=== PATIENT | male | born 1935 | race Caucasian/White ===

== ENCOUNTER 2017-11-24 16:39 | Observation (INO) ==
[2017-11-24] MEDS ORDERED: *HR* HYDROcodone/Acet 5/325 mg TABLET PO PRN (23:02)
[2017-11-24] MEDS ORDERED: Acetaminophen 325 MG TABLET PO PRN (23:02)
[2017-11-24] MEDS ORDERED: Ondansetron 4 MG/2 ML VIAL IVP PRN (23:02)
[2017-11-24] MEDS ORDERED: *HR* Promethazine 25 MG/ML VIAL IVP PRN (23:02)
[2017-11-24] MEDS ORDERED: Naloxone 0.4 MG/ML INJ IVP PRN (23:02)
[2017-11-24] MEDS ORDERED: Nitroglycerin 0.4 MG TAB.SUBL SL PRN (23:06)
--- NOTE | 2017-11-24 23:20 | Internal Med History&Physical ---
Date of Encounter: 11/24/17 Time of Encounter: 22:30 Internal Medicine - H&P: HPI Chief complaint: Chest pain Admitted From: Emergency Dept Plans for Post Hospital Care: Home History of present illness: Mr. Graham is a 82 year old male with known PMH of Chronic Afib, HTN, Dementia , and HLD who recently had a fall with Rt hip fracture for which he underwent Rt hip repair with Cephalomedullary nail placement by ortho later pt was discharged to [facility] rehab center for short term PT. Now he was sent to our hospital from rehab center since pt did c/o CP this morning while he was was rehab center. Pt stated he has left chest wall pain, 5/10 in severity non radiating and not associated with any nausea/ vomiting. His CP is more like tightness, which lasted for 10 minutes. Apparently he did have new ST depression on EKG, so pt was transferred here for further care. P denied any active CP now. Past Med Surg Social Fam HX - Past Medical History Medical history: atrial fibrillation, dementia, hyperlipidemia Psychiatric history: no psych history - Past Surgical History Surgical History: appendectomy - Social History Smoking Status: Never smoker Smokeless Tobacco Status: No Alcohol use: none Drug use: none - Family History Mother Living Status: Internal Medicine - H&P: Meds Aspirin [Lo-Dose Aspirin EC] 81 mg PO DAILY 11/19/17 [History] Donepezil HCl [Aricept] 5 mg PO DAILY 11/19/17 [History] Acetaminophen [Tylenol] 650 mg PO Q6HR PRN tablet 11/23/17 [Rx] Cholecalciferol (D-3) [Vitamin D] 2,000 unit PO DAILY tablet 11/23/17 [Rx] Enoxaparin [Lovenox] 40 mg SQ 0600 syringe 11/23/17 [Rx] Metoprolol [Lopressor] 25 mg PO BID tablet 11/23/17 [Rx] risperiDONE [RisperDAL] 0.25 mg PO HS tablet 11/23/17 [Rx] 3 Allergy/AdvReac Type Severity Reaction Status Date / Time No Known Allergies Allergy Verified 11/19/17 15:12 All Systems PM: A 10-system review of systems was performed and is negative for pertinent findings except as documented above in the HPI. Review of systems: All the systems are reviewed everything is benign except the systems and symptoms I mentioned in the history of present illness - Constitutional Vitals: Temp Pulse Resp BP Pulse Ox 98.8 F 84 16 111/68 98 11/24/17 20:07 11/24/17 20:07 11/24/17 20:07 11/24/17 20:07 11/24/17 20:07 General appearance: Present: A&O X 3, no acute distress, answers questions appropriately - Head Head exam: Present: atraumatic, normal inspection - Neck Neck exam general surgery: Present: supple - Respiratory Respiratory exam: Present: decreased breath sounds. Absent: rales, respiratory distress, rhonchi, wheezes - Cardiovascular Cardiovascular exam: Present: irregular rhythm, +S1, +S2. Absent: systolic murmur, tachycardia - GI/Abdominal GI/Abdominal exam: Present: normal bowel sounds, soft. Absent: rebound, rigid, tenderness - Extremities Exam Extremities exam: Absent: calf tenderness, pedal edema, tenderness Additional comments: clean incision over Rt hip are noticed no swelling / no signs of cellulites - Back Exam Back exam: Absent: CVA tenderness (L), CVA tenderness (R) - Neurological Exam Neurological exam: Present: alert, oriented X3 - Psychiatric Psychiatric exam: Present: normal affect, normal mood - Skin Skin exam: Absent: rash - Assessment and plan (1) Chest pain Current Visit: No Status: Acute Assessment and plan: Will admit the pt into Tele for observation Will place pt on residential monitor check serial troponin so far negative troponin No EKG found in the pt's transferred medical records will get a stat EKG now Pt denied any CP now Cont pt on ASA, and Nitro PRN for pain Will check FLP in AM Will get stress test in AM since pt is high risk for ACS Qualifiers: Qualified Code(s): I20.0 - Unstable angina (2) Atrial fibrillation Current Visit: No Status: Chronic Assessment and plan: rate controlled with metoprolol not on coumadin / anti coag due to high risk for falls cont ASA Qualifiers: Atrial fibrillation type: persistent Qualified Code(s): I48.1 - Persistent atrial fibrillation (3) Dementia Current Visit: No Status: Chronic Assessment and plan: resumed hoe meds Qualifiers: Alzheimer's disease onset: late-onset Dementia behavioral disturbance: without behavioral disturbance Qualified Code(s): G30.1 - Alzheimer's disease with late onset; F02.80 - Dementia in other diseases classified elsewhere without behavioral disturbance; F02.80 - Dementia in other diseases classified elsewhere without behavioral disturbance; F02.80 - Dementia in other diseases classified elsewhere without behavioral disturbance (4) Osteopenia Current Visit: No Status: Chronic Assessment and plan: on Vit D supplements Qualifiers: Osteopenia location: unspecified Qualified Code(s): M85.80 - Other specified disorders of bone density and structure, unspecified site (5) Urinary retention Current Visit: No Status: Acute Assessment and plan: cont Aggarwal which was placed during last week hospitalization need to f/u with Urology as an out pt (6) HTN (hypertension) Current Visit: Yes Status: Acute Assessment and plan: stable with current meds Qualifiers: Hypertension type: essential hypertension Qualified Code(s): I10 - Essential (primary) hypertension (7) History of repair of right hip joint Current Visit: Yes Status: Acute Assessment and plan: on Lovenox for DVT prophylaxis PT / OT out pt f/u with Ortho - Time Spent With Patient Total time spent is greater than 50% in coordination of care (as documented) at patient's floor/unit and/or counseling patient:
[2017-11-25] MEDS: *HR* OxyCODONE Immed Rel 5 MG TABLET PO PRN ×3 (01:03→21:49)
[2017-11-25 01:04] LABS: Chol/HDL Ratio 5.2 (0-4.9)
[2017-11-25] MEDS: *HR* FentaNYL (PF) 100 MCG/2 ML VIAL IVP PRN (03:22)
[2017-11-25] MEDS: *HR* Enoxaparin 40 MG/0.4 ML SYRINGE SQ SCH (06:22)
[2017-11-25] MEDS: Aspirin Enteric Coated 81 MG Tablet PO SCH (08:39)
[2017-11-25] MEDS: Cholecalciferol (D-3) 1,000 UNIT TABLET PO SCH (08:39)
--- NOTE | 2017-11-25 15:35 | Internal Med Progress Note ---
Date of Encounter: 11/25/17 Time of Encounter: 15:32 - Assessment and plan (1) Atrial fibrillation Current Visit: No Status: Chronic Assessment and plan: rate controlled with metoprolol dose not on coumadin / anti coag due to high risk for falls cont ASA Qualifiers: Atrial fibrillation type: persistent Qualified Code(s): I48.1 - Persistent atrial fibrillation (2) Osteopenia Current Visit: No Status: Chronic Assessment and plan: on Vit D supplement Qualifiers: Osteopenia location: unspecified Qualified Code(s): M85.80 - Other specified disorders of bone density and structure, unspecified site (3) Dementia Current Visit: No Status: Chronic Assessment and plan: home meds Qualifiers: Alzheimer's disease onset: late-onset Dementia behavioral disturbance: without behavioral disturbance Qualified Code(s): G30.1 - Alzheimer's disease with late onset; F02.80 - Dementia in other diseases classified elsewhere without behavioral disturbance; F02.80 - Dementia in other diseases classified elsewhere without behavioral disturbance; F02.80 - Dementia in other diseases classified elsewhere without behavioral disturbance (4) Urinary retention Current Visit: No Status: Acute Assessment and plan: cont Aggarwal which was placed during last week hospitalization need to f/u with Urology as an out patient (5) Chest pain Current Visit: No Status: Acute Assessment and plan: serial troponin negative No EKG found in the pt's transferred medical records EKG afib Pt denied chest pain Cont ASA, Nitro PRN for pain FLP reviewed stress test in AM since pt is high risk for ACS Qualifiers: Qualified Code(s): I20.0 - Unstable angina (6) HTN (hypertension) Current Visit: Yes Status: Acute Assessment and plan: stable, continue current meds Qualifiers: Hypertension type: essential hypertension Qualified Code(s): I10 - Essential (primary) hypertension (7) History of repair of right hip joint Current Visit: Yes Status: Acute Assessment and plan: patient on Lovenox for DVT prophylaxis PT / OT out pt f/u with Ortho - Time Spent With Patient Total time spent is greater than 50% in coordination of care (as documented) at patient's floor/unit and/or counseling patient: - Subjective Interval history: Patient is lying in bed in no distress and denied any chest pain at this time. He is a recent hip replacement to was discharged from here to a rehabilitation unit. He was there one day and came back. He has a Aggarwal catheter that he left the hospital with. His only complaint is of an itchy back. His son Kenn is at the bedside and would like to be called tomorrow after the stress test with results at [phone] - Constitutional Vitals: Temp Pulse Resp BP Pulse Ox 97.6 F 83 16 97/59 96 11/25/17 10:00 11/25/17 10:00 11/25/17 10:00 11/25/17 10:00 11/25/17 10:00 General appearance: Present: cooperative, A&O X 2, pleasant, no acute distress, answers questions appropriately - Head Head exam: Present: atraumatic, normocephalic - Eye Eye exam: Present: PERRL, conjuntiva pink, sclera anicteric Pupils: Present: PERRL - Neck Neck exam general surgery: Present: supple, trachea midline. Absent: lymphadenopathy - Respiratory Respiratory exam: Present: CTAB. Absent: accessory muscle use, rales, rhonchi, wheezes - Cardiovascular Cardiovascular exam: Present: RRR, +S1, +S2. Absent: diastolic murmur, gallop, rubs, systolic murmur - GI/Abdominal GI/Abdominal exam: Present: normal bowel sounds, soft, no peritoneal signs. Absent: distended, tenderness Additional comments: Aggarwal intact draining yellow urine - Extremities Exam Extremities exam: Present: warm, radial pulses palpable and symmetrical. Absent : calf tenderness, cyanotic, pedal edema - Neurological Exam Neurological exam: Present: alert, CN II-XII intact, no focal deficits. Absent : pronater drift, facial droop, speech deficit - Skin Skin exam: Present: dry, intact, normal color, warm Internal Medicine: Result - Labs Labs: Cardiac Enzymes 11/25/17 11/25/17 Range/Units 00:16 05:50 Troponin I 0.03 0.03 (< 0.04) ng/mL Consult Discharge Plan - Plan Referrals: NONE,PCP [Primary Care Provider] -
[2017-11-25] MEDS: risperiDONE 0.25 MG TABLET PO SCH (21:49)
[2017-11-26 05:06] LABS: Hematocrit 24.7 % (37.5-50.1); Hemoglobin 8.3 g/dL (12.9-16.9); Mean Corpuscular HGB Conc 33.6 g/dL (31.6-35.5); Mean Corpuscular Hemoglobin 31.1 pg (28.0-33.3); Mean Corpuscular Volume 92.5 fL (83.0-100.0); Mean Platelet Volume 10.1 fL (9.4-12.4); Platelet Count 233 K/mcL (140-400); Red Blood Count 2.67 M/mcL (4.19-5.50); Red Cell Distribution Width 14.1 % (11.5-14.5)
[2017-11-26 05:18] LABS: BUN/Creatinine Ratio 29 (6-26); Blood Urea Nitrogen 19 mg/dL (8-23); Calcium 8.1 mg/dL (8.6-10.3); Carbon Dioxide 27 mEq/L (23-29); Chloride 107 mEq/L (98-107); Glucose 95 mg/dL (70-105); Osmolality,Calculated 286 (280-300); Sodium 137 mEq/L (136-145); eGFR For African Americans > 60 (> 60); eGFR For Non-African Americans > 60 (> 60)
[2017-11-26] MEDS: *HR* Enoxaparin 40 MG/0.4 ML SYRINGE SQ SCH (05:54)
[2017-11-26] MEDS: *HR* OxyCODONE Immed Rel 5 MG TABLET PO PRN ×2 (05:55→20:51)
[2017-11-26] MEDS: *HR* FentaNYL (PF) 100 MCG/2 ML VIAL IVP PRN ×2 (07:00→23:44)
[2017-11-26] MEDS: Aspirin Enteric Coated 81 MG Tablet PO SCH (09:00)
[2017-11-26] MEDS: Cholecalciferol (D-3) 1,000 UNIT TABLET PO SCH (09:00)
--- NOTE | 2017-11-26 19:01 | Internal Med Progress Note ---
Date of Encounter: 11/26/17 Time of Encounter: 18:58 - Assessment and plan (1) Atrial fibrillation Current Visit: No Status: Chronic Assessment and plan: rate controlled with metoprolol not on coumadin / anti coag due to high risk for falls cont ASA Qualifiers: Atrial fibrillation type: persistent Qualified Code(s): I48.1 - Persistent atrial fibrillation (2) Osteopenia Current Visit: No Status: Chronic Assessment and plan: Vit D supplement Qualifiers: Osteopenia location: unspecified Qualified Code(s): M85.80 - Other specified disorders of bone density and structure, unspecified site (3) Dementia Current Visit: No Status: Chronic Assessment and plan: home meds pleasant Qualifiers: Alzheimer's disease onset: late-onset Dementia behavioral disturbance: without behavioral disturbance Qualified Code(s): G30.1 - Alzheimer's disease with late onset; F02.80 - Dementia in other diseases classified elsewhere without behavioral disturbance; F02.80 - Dementia in other diseases classified elsewhere without behavioral disturbance; F02.80 - Dementia in other diseases classified elsewhere without behavioral disturbance (4) Urinary retention Current Visit: No Status: Acute Assessment and plan: cont Aggarwal which was placed during last week of hospitalization need to f/u with Urology as an out patient (5) Chest pain Current Visit: No Status: Acute Assessment and plan: serial troponin negative EKG afib Pt denied chest pain Cont ASA, Nitro PRN for pain FLP reviewed Unable to tolerate stress test as he could not lie flat secondary to back and hip pain. Dobutamine stress echo pending in the morning. Qualifiers: Qualified Code(s): I20.0 - Unstable angina (6) HTN (hypertension) Current Visit: Yes Status: Acute Assessment and plan: stable, continue meds Qualifiers: Hypertension type: essential hypertension Qualified Code(s): I10 - Essential (primary) hypertension (7) History of repair of right hip joint Current Visit: Yes Status: Acute Assessment and plan: patient on Lovenox for DVT prophylaxis PT / OT out pt f/u with Ortho service - Time Spent With Patient Total time spent is greater than 50% in coordination of care (as documented) at patient's floor/unit and/or counseling patient: - Subjective Interval history: Patient is lying in bed in no distress and denied any chest pain at this time. He is a recent hip replacement to was discharged from here to a rehabilitation unit. He was there one day and came back with the chest. He has a Aggarwal catheter that he left the hospital with. His only complaint is an itchy back. His son Kenn was called at [phone] and told the stress test was not completed he would have a dobutamine stress echo in the morning - Constitutional Vitals: Temp Pulse Resp BP Pulse Ox 98.8 F 75 16 105/68 97 11/26/17 15:38 11/26/17 15:38 11/26/17 15:38 11/26/17 15:38 11/26/17 15:38 General appearance: Present: cooperative, A&O X 2, pleasant, no acute distress, answers questions appropriately - Head Head exam: Present: atraumatic, normocephalic - Eye Eye exam: Present: PERRL, conjuntiva pink, sclera anicteric Pupils: Present: PERRL - Neck Neck exam general surgery: Present: supple, trachea midline. Absent: lymphadenopathy - Respiratory Respiratory exam: Present: CTAB. Absent: accessory muscle use, rales, rhonchi, wheezes - Cardiovascular Cardiovascular exam: Present: RRR, +S1, +S2. Absent: diastolic murmur, gallop, rubs, systolic murmur - GI/Abdominal GI/Abdominal exam: Present: normal bowel sounds, soft, no peritoneal signs. Absent: distended, tenderness - Extremities Exam Extremities exam: Present: warm, radial pulses palpable and symmetrical. Absent : calf tenderness, cyanotic, pedal edema Additional comments: Right Hip wound clean and dry sterile with hip pain. - Neurological Exam Neurological exam: Present: alert, CN II-XII intact, no focal deficits. Absent : pronater drift, facial droop, speech deficit - Skin Skin exam: Present: dry, warm Additional comments: Red rash on back that is very itchy may be secondary to linens Internal Medicine: Result - Labs CBC & Chem 7: 11/26/17 04:29 11/26/17 04:29 Labs: Short CBC 11/26/17 Range/Units 04:29 WBC 10.2 (4.3-11.1) K/mcL Hgb 8.3 L (12.9-16.9) g/dL Hct 24.7 L (37.5-50.1) % Plt Count 233 (140-400) K/mcL BMP 11/26/17 04:29 Sodium 137 Potassium 4.0 Chloride 107 Carbon Dioxide 27 BUN 19 Creatinine 0.65 L Glucose 95 Calcium 8.1 L Consult Discharge Plan - Plan Referrals: NONE,PCP [Primary Care Provider] -
[2017-11-26] MEDS: risperiDONE 0.25 MG TABLET PO SCH (20:52)
[2017-11-27 05:59] LABS: Hematocrit 27.4 % (37.5-50.1); Hemoglobin 9.2 g/dL (12.9-16.9); Mean Corpuscular HGB Conc 33.6 g/dL (31.6-35.5); Mean Corpuscular Hemoglobin 31.7 pg (28.0-33.3); Mean Corpuscular Volume 94.5 fL (83.0-100.0); Platelet Count 299 K/mcL (140-400); Red Cell Distribution Width 14.5 % (11.5-14.5)
[2017-11-27 06:19] LABS: BUN/Creatinine Ratio 27 (6-26); Blood Urea Nitrogen 20 mg/dL (8-23); Calcium 8.3 mg/dL (8.6-10.3); Carbon Dioxide 27 mEq/L (23-29); Chloride 107 mEq/L (98-107); Glucose 90 mg/dL (70-105); Osmolality,Calculated 288 (280-300); Potassium 4.3 mEq/L (3.5-5.1); Sodium 138 mEq/L (136-145); eGFR For African Americans > 60 (> 60); eGFR For Non-African Americans > 60 (> 60)
[2017-11-27] MEDS: *HR* OxyCODONE Immed Rel 5 MG TABLET PO PRN (07:03)
[2017-11-27] MEDS: *HR* Enoxaparin 40 MG/0.4 ML SYRINGE SQ SCH (07:04)
--- NOTE | 2017-11-27 10:14 | Internal Med Progress Note ---
Date of Encounter: 11/27/17 Time of Encounter: 10:11 - Assessment and plan (1) Chest pain Current Visit: No Status: Acute Assessment and plan: Patient had chest pain while at outpatient rehabilitation. Denies any chest pain at this time. Troponins are negative EKG with no acute ST changes. Patient was unable to complete stress test due to elevated heart rate. TTE showed preserved EF. Cardiology was consulted recommending canceling stress test and continue to monitor. Once he has recovered from his hip replacement consider stress test if chest pain continues Qualifiers: Chest pain type: unspecified Qualified Code(s): R07.9 - Chest pain, unspecified (2) Atrial fibrillation Current Visit: No Status: Chronic Assessment and plan: 1 patient has a history of chronic atrial fibrillation his Lopressor was held for stress test. A apparently during the stress test patient began to have elevated heart rate with low blood pressure he was not able to tolerate the test and it was terminated. We did consult cardiology who did see the patient presently he is only on aspirin for anticoagulation. She had ASCUS 3. Cardiology recommending patient Coumadin or [place] once he is back to baseline Qualifiers: Atrial fibrillation type: persistent Qualified Code(s): I48.1 - Persistent atrial fibrillation (3) Osteopenia Current Visit: No Status: Chronic Assessment and plan: Continue Vit D supplement Qualifiers: Osteopenia location: unspecified Qualified Code(s): M85.80 - Other specified disorders of bone density and structure, unspecified site (4) Dementia Current Visit: No Status: Chronic Assessment and plan: Continue with home medications Qualifiers: Dementia type: unspecified type Dementia behavioral disturbance: without behavioral disturbance Qualified Code(s): F03.90 - Unspecified dementia without behavioral disturbance (5) Urinary retention Current Visit: No Status: Acute Assessment and plan: cont Aggarwal which was placed during last week of [id number] with urology as outpatient (6) HTN (hypertension) Current Visit: Yes Status: Acute Assessment and plan: continue meds Qualifiers: Hypertension type: essential hypertension Qualified Code(s): I10 - Essential (primary) hypertension (7) History of repair of right hip joint Current Visit: Yes Status: Acute Assessment and plan: patient on Lovenox for DVT prophylaxis PT / OT out pt f/u with Ortho service - Time Spent With Patient Total time spent is greater than 50% in coordination of care (as documented) at patient's floor/unit and/or counseling patient: - Subjective Interval history: This patient is new to me , I did review records. The patient went down for a dobutamine stress test,apparently the test was stopped dt rapid afib and low BP I did examine the patient upon arrival to the floor. He denies any CP, palpitations or SOB. He is afib on the monitor. BP low 93/59. Ordered stat EKG. - Constitutional Vitals: Temp Pulse Resp BP Pulse Ox 98.0 F 81 16 111/74 90 11/27/17 06:39 11/27/17 06:39 11/27/17 06:39 11/27/17 06:39 11/27/17 06:39 General appearance: Present: cooperative, A&O X 2, pleasant, no acute distress, answers questions appropriately - Head Head exam: Present: atraumatic, normocephalic - Eye Eye exam: Present: PERRL, conjuntiva pink, sclera anicteric Pupils: Present: PERRL - Neck Neck exam general surgery: Present: supple, trachea midline. Absent: lymphadenopathy - Respiratory Respiratory exam: Present: CTAB. Absent: accessory muscle use, rales, rhonchi, wheezes - Cardiovascular Cardiovascular exam: Present: RRR, +S1, +S2. Absent: diastolic murmur, gallop, rubs, systolic murmur - GI/Abdominal GI/Abdominal exam: Present: normal bowel sounds, soft, no peritoneal signs. Absent: distended, tenderness - Extremities Exam Extremities exam: Present: warm, radial pulses palpable and symmetrical. Absent : calf tenderness, cyanotic, pedal edema - Expanded Lower Extremities Exam Hip exam: Present: tenderness (R hip with dressing intact, no redness swelling or drainage) Internal Medicine: Result - Labs CBC & Chem 7: 11/27/17 04:47 11/27/17 04:47 Labs: Short CBC 11/27/17 Range/Units 04:47 WBC 10.9 (4.3-11.1) K/mcL Hgb 9.2 L (12.9-16.9) g/dL Hct 27.4 L (37.5-50.1) % Plt Count 299 (140-400) K/mcL BMP 11/27/17 04:47 Sodium 138 Potassium 4.3 Chloride 107 Carbon Dioxide 27 BUN 20 Creatinine 0.75 Glucose 90 Calcium 8.3 L Consult Discharge Plan - Plan Referrals: NONE,PCP [Primary Care Provider] -
[2017-11-27] MEDS: Cholecalciferol (D-3) 1,000 UNIT TABLET PO SCH (11:24)
[2017-11-27] MEDS: Aspirin Enteric Coated 81 MG Tablet PO SCH (11:24)
--- NOTE | 2017-11-27 13:37 | Cardiology Consult Note ---
<Darrell Maya - Last Filed: 11/27/17 15:07> Date of Encounter: 11/27/17 Time of Encounter: 13:30 Assessment and Plan (1) Atrial fibrillation Status: Chronic H/o chronic afib. Lopressor held yesterday for low blood pressure and held this morning for stress test. HR noted to be elevated by stress staff and stress test was not completed. Avg HR over 24 hours was 86 bpm. HR currently 82 bpm. He did receive his metoprolol this afternoon. Overall he appears to be well controlled. He is on asa only due to falls. CHADS VASc=3 for HTN and age2. Consider starting coumadin or NOAC once he is more steady on his feet. Increased risk of CVA reviewed with patient. Qualifiers: Atrial fibrillation type: persistent Qualified Code(s): I48.1 - Persistent atrial fibrillation (2) Chest pain Status: Acute Patient reported to have chest pain at rehab. Unable to assess on my exam due to dementia. Denies pain in the past two days. Troponin negative. EKG shows rate controlled afib with no acute ST changes. Patient unable to complete stress test due to hip pain and elevated HR. TTE 11/20/17 showed preserved EF. Recommend canceling stress test and continue to monitor. Once he heals from hip replacement consider stress if recurrent pain. I discussed with patient and his brother and they agree with plan. Qualifiers: Chest pain type: unspecified Qualified Code(s): R07.9 - Chest pain, unspecified Discussion w patient/family: The assessment and plan as outlined above was discussed with the patient and/or family members who expressed understanding and agreement. All questions were answered. Thank you for involving us in the care of your patient. Please call with any questions. History of Present Illness Consult date: 11/27/17 Requesting physician: Hanh Melchor Consult reason: Chest pain, afib Chief complaint: Chest pain History of present illness: Mr. Graham is a 82 year old male who presents from rehab facility after c/o chest pain. He has a past medical history of chronic atrial fibrillation, HLD, demantia. He was residing at the [facility] after undergoing right hip repair. On my exam he denies chest pain. He also does not remember having chest pain.He is a poor historian. A stress test was initially ordered. He was not able to lay flat for nuclear pharmacologic stress test so stress echo was recommended. Stress terry was cancelled this morning when his HR was elevated up to 109 and his blood pressure was in the 90's systolic prior to starting stress. He denies history of CAD. Past Med Surg Social Fam HX - Past Medical History Medical history: atrial fibrillation, dementia, hyperlipidemia Psychiatric history: no psych history - Past Surgical History Surgical History: appendectomy - Social History Smoking Status: Never smoker Smokeless Tobacco Status: No Alcohol use: none Drug use: none - Family History Mother Living Status: Medications and Allergies Aspirin [Lo-Dose Aspirin EC] 81 mg PO DAILY 11/19/17 [History] Donepezil HCl [Aricept] 5 mg PO DAILY 11/19/17 [History] Acetaminophen [Tylenol] 650 mg PO Q6HR PRN tablet 11/23/17 [Rx] Cholecalciferol (D-3) [Vitamin D] 2,000 unit PO DAILY tablet 11/23/17 [Rx] Enoxaparin [Lovenox] 40 mg SQ 0600 syringe 11/23/17 [Rx] Metoprolol [Lopressor] 25 mg PO BID tablet 11/23/17 [Rx] risperiDONE [RisperDAL] 0.25 mg PO HS tablet 11/23/17 [Rx] DiphenhydraMINE [Benadryl] 1 appl TP QID PRN tube 11/29/17 [Rx] DiphenhydraMINE [Benadryl] 25 mg PO Q6HR PRN capsule 11/29/17 [Rx] Nitroglycerin 0.4 mg SL Q5MIN PRN tab.subl 11/29/17 [Rx] 3 Allergy/AdvReac Type Severity Reaction Status Date / Time No Known Allergies Allergy Verified 11/19/17 15:12 All Systems Review: The remainder of the systems were reviewed and are negative Physical Examination Vital Signs, Last 4 Hours Temp Pulse Resp BP Pulse Ox 11/27/17 11:05 97.8 F 80 16 111/74 92 Results 11/27/17 04:47 11/27/17 04:47 Lab Results 11/27/17 11/27/17 04:47 04:47 WBC 10.9 Hgb 9.2 L Hct 27.4 L Plt Count 299 Sodium 138 Potassium 4.3 Chloride 107 Carbon Dioxide 27 BUN 20 Creatinine 0.75 Glucose 90 Calcium 8.3 L Consult Discharge Plan - Plan Instructions: Angina (DC), Atrial Fibrillation (DC), Chest Pain (DC), Chronic Hypertension (DC) Referrals: Simon Joshi MD [Partnered Physician] - NONE,PCP [Primary Care Provider] - Mahad Trevizo MD [Non-Partnered Physician] - 01/01/18 9:45 am <Chano Cavazos - Last Filed: 12/03/17 21:20> Date of Encounter: 11/27/17 Time of Encounter: 18:00 - Attending Attestation I have personally performed a face to face evaluation on this patient. I have reviewed and agree with the care plan. History and Exam by me shows: CC: Chest pain Pt admitted thru ER after apparently complaining of chest pain at the facility where he is a resident. He now denies chest pain, pressure or shortness of breath. He is confused, orientated x 1 only, in NAD. Hx obained from medical record PMHX: reviewe PE; Pt seen and examined, agree with findings as documented. IMP:Plan 1. Chest pain: unclear etiology or if occurred, continue DELANO protocol, troponins negative so far. 2. A fib - chronic, ventricular response rate appears well controlled, not a candidate for systemic anticoagulation due to fall risk. 3. Right hip fracture: repaired, in ECF for rehab Rec: Medical management, cancelled stress imaging, would not persue unless becomes more symptomatic. Assessment and Plan Discussion w patient/family: The assessment and plan as outlined above was discussed with the patient and/or family members who expressed understanding and agreement. All questions were answered. Thank you for involving us in the care of your patient. Please call with any questions. History of Present Illness History of present illness: Mr. Graham is a 82 year old male All Systems Review: The remainder of the systems were reviewed and are negative Results 11/29/17 06:32 11/29/17 06:32
[2017-11-27] MEDS: risperiDONE 0.25 MG TABLET PO SCH (21:09)
[2017-11-27] MEDS: DiphenhydraMINE CREAM 28.4 GM TUBE TP PRN (23:59)
--- NOTE | 2017-11-28 00:22 | Electrocardiograph Report ---
[place] [address] Test Date: 2017-11-24 Pat Name: Partha Graham Department: 113 Room: 3B44 Gender: M Outpatient Services Director: [id number] : 1935 Requested By: Alexandrea Barton Order Number: [id number] Reading MD: Liberty Torres Measurements Intervals [place] Rate: 87 P: MT: 0 QRS: -6 QRSD: 88 T: 3 QT: 368 QTc: 412 Interpretive Statements ATRIAL FIBRILLATION MINIMAL ST DEPRESSION ABNORMAL RHYTHM ECG Electronically Signed On 11-28-2017 0:21:19 EDT by Liberty Torres
--- NOTE | 2017-11-28 00:32 | Electrocardiograph Report ---
[place] [address] Test Date: 2017-11-24 Pat Name: Partha Graham Department: 2001 Room: 3B44 Gender: M Lime Vat Tender: SYLVIA : 1935 Requested By: Joshua Aden Order Number: [id number] Reading MD: Liberty Torres Measurements Intervals [place] Rate: 90 P: [place]: 0 QRS: 7 QRSD: 87 T: 14 QT: 369 QTc: 416 Interpretive Statements ATRIAL FIBRILLATION MODERATE ST DEPRESSION [0.05+ mV ST DEPRESSION] Electronically Signed On 11-28-2017 0:30:40 EDT by Liberty Torres
[2017-11-28] MEDS: *HR* Enoxaparin 40 MG/0.4 ML SYRINGE SQ SCH (04:52)
[2017-11-28] MEDS: DiphenhydraMINE CREAM 28.4 GM TUBE TP PRN ×2 (04:54→21:24)
[2017-11-28 05:43] LABS: Basophils # 0.1 K/mcL (0.0-0.2); Basophils % 0.5 %; Eosinophils # 0.3 K/mcL (0.0-0.6); Eosinophils % 2.7 %; Hematocrit 27.5 % (37.5-50.1); Immature Granulocytes % 1.7 % (0-4); Lymphocytes # 1.3 K/mcL (0.6-4.6); Mean Corpuscular HGB Conc 32.7 g/dL (31.6-35.5); Mean Corpuscular Hemoglobin 30.8 pg (28.0-33.3); Mean Corpuscular Volume 94.2 fL (83.0-100.0); Mean Platelet Volume 9.7 fL (9.4-12.4); Monocytes % 9.5 %; Neutrophils # 8.1 K/mcL (1.6-8.9); Platelet Count 316 K/mcL (140-400); Red Blood Count 2.92 M/mcL (4.19-5.50); Red Cell Distribution Width 14.6 % (11.5-14.5); Segmented Neutrophils % 73.6 %
[2017-11-28 05:59] LABS: BUN/Creatinine Ratio 26 (6-26); Blood Urea Nitrogen 19 mg/dL (8-23); Calcium 8.3 mg/dL (8.6-10.3); Carbon Dioxide 26 mEq/L (23-29); Chloride 107 mEq/L (98-107); Glucose 92 mg/dL (70-105); Osmolality,Calculated 286 (280-300); Potassium 4.1 mEq/L (3.5-5.1); Sodium 137 mEq/L (136-145); eGFR For African Americans > 60 (> 60); eGFR For Non-African Americans > 60 (> 60)
[2017-11-28] MEDS: Cholecalciferol (D-3) 1,000 UNIT TABLET PO SCH (08:47)
[2017-11-28] MEDS: Aspirin Enteric Coated 81 MG Tablet PO SCH (08:47)
[2017-11-28] MEDS: *HR* OxyCODONE Immed Rel 5 MG TABLET PO PRN (09:24)
--- NOTE | 2017-11-28 18:48 | Internal Med Progress Note ---
Date of Encounter: 11/28/17 Time of Encounter: 12:00 - Assessment and plan (1) Chest pain Current Visit: No Status: Acute Assessment and plan: No chest pain voiced at this time Troponins are negative EKG with no acute ST changes. Patient was unable to complete stress test due to elevated heart rate. TTE 11/20/17 showed preserved EF. Cardiology was consulted recommending canceling stress test and continue to monitor. Once he has recovered from his hip replacement consider stress test if chest pain continues patient will be discharged back to rehabilitation facility once accepted Qualifiers: Chest pain type: unspecified Qualified Code(s): R07.9 - Chest pain, unspecified (2) Atrial fibrillation Current Visit: No Status: Chronic Assessment and plan: 1 patient has a history of chronic atrial fibrillation his Lopressor was held for stress test. A apparently during the stress test patient began to have elevated heart rate with low blood pressure he was not able to tolerate the test and it was terminated. We did consult cardiology who did see the patient presently he is only on aspirin for anticoagulation. She had ASCUS 3. Cardiology recommending patient Coumadin or NOAC once he is back to baseline Qualifiers: Atrial fibrillation type: persistent Qualified Code(s): I48.1 - Persistent atrial fibrillation (3) Osteopenia Current Visit: No Status: Chronic Assessment and plan: Continue Vit D supplement Qualifiers: Osteopenia location: unspecified Qualified Code(s): M85.80 - Other specified disorders of bone density and structure, unspecified site (4) Dementia Current Visit: No Status: Chronic Assessment and plan: Continue with home medications Qualifiers: Dementia type: unspecified type Dementia behavioral disturbance: without behavioral disturbance Qualified Code(s): F03.90 - Unspecified dementia without behavioral disturbance (5) Urinary retention Current Visit: No Status: Acute Assessment and plan: cont Aggarwal which was placed during last week of hewnktyzgptotyq-jonkdi-ch with urology as outpatient (6) HTN (hypertension) Current Visit: Yes Status: Acute Assessment and plan: continue meds Qualifiers: Hypertension type: essential hypertension Qualified Code(s): I10 - Essential (primary) hypertension (7) History of repair of right hip joint Current Visit: Yes Status: Acute Assessment and plan: patient on Lovenox for DVT prophylaxis PT / OT out pt f/u with Ortho service - Time Spent With Patient Total time spent is greater than 50% in coordination of care (as documented) at patient's floor/unit and/or counseling patient: - Subjective Interval history: Patient denies any chest pain or shortness of breath. He does complain of hip pain. Did review this case with neonatal social worker today anticipate patient to be discharged awaiting acceptance to rehabilitation center - Constitutional Vitals: Temp Pulse Resp BP Pulse Ox 98.4 F 93 16 101/66 94 11/28/17 18:30 11/28/17 18:30 11/28/17 18:30 11/28/17 18:30 11/28/17 18:30 General appearance: Present: cooperative, A&O X 2, pleasant, no acute distress, answers questions appropriately - Head Head exam: Present: atraumatic, normocephalic - Eye Eye exam: Present: PERRL, conjuntiva pink, sclera anicteric Pupils: Present: PERRL - Neck Neck exam general surgery: Present: supple, trachea midline. Absent: lymphadenopathy - Respiratory Respiratory exam: Present: CTAB. Absent: accessory muscle use, rales, rhonchi, wheezes - Cardiovascular Cardiovascular exam: Present: RRR, +S1, +S2. Absent: diastolic murmur, gallop, rubs, systolic murmur - GI/Abdominal GI/Abdominal exam: Present: normal bowel sounds, soft, no peritoneal signs. Absent: distended, tenderness - Extremities Exam Extremities exam: Present: warm, radial pulses palpable and symmetrical. Absent : calf tenderness, cyanotic, pedal edema - Neurological Exam Neurological exam: Present: CN II-XII intact, oriented X3, no focal deficits. Absent: pronater drift, facial droop, speech deficit - Skin Skin exam: Present: dry, intact Internal Medicine: Result - Labs CBC & Chem 7: 11/28/17 04:45 11/28/17 04:45 Labs: Short CBC 11/28/17 Range/Units 04:45 WBC 11.0 (4.3-11.1) K/mcL Hgb 9.0 L (12.9-16.9) g/dL Hct 27.5 L (37.5-50.1) % Plt Count 316 (140-400) K/mcL Neutrophils # 8.1 (1.6-8.9) K/mcL BMP 11/28/17 04:45 Sodium 137 Potassium 4.1 Chloride 107 Carbon Dioxide 26 BUN 19 Creatinine 0.73 Glucose 92 Calcium 8.3 L Consult Discharge Plan - Plan Referrals: NONE,PCP [Primary Care Provider] -
[2017-11-28] MEDS: risperiDONE 0.25 MG TABLET PO SCH (21:24)
[2017-11-29] MEDS: DiphenhydraMINE CREAM 28.4 GM TUBE TP PRN ×3 (00:28→13:51)
[2017-11-29] MEDS: *HR* Enoxaparin 40 MG/0.4 ML SYRINGE SQ SCH (04:58)
[2017-11-29 07:22] LABS: Basophils # 0.1 K/mcL (0.0-0.2); Basophils % 0.4 %; Eosinophils # 0.3 K/mcL (0.0-0.6); Eosinophils % 2.7 %; Hematocrit 28.9 % (37.5-50.1); Hemoglobin 9.6 g/dL (12.9-16.9); Immature Granulocytes % 1.8 % (0-4); Lymphocytes # 1.5 K/mcL (0.6-4.6); Lymphocytes % 13.1 %; Mean Corpuscular HGB Conc 33.2 g/dL (31.6-35.5); Mean Corpuscular Hemoglobin 31.3 pg (28.0-33.3); Mean Corpuscular Volume 94.1 fL (83.0-100.0); Mean Platelet Volume 9.8 fL (9.4-12.4); Monocytes % 9.2 %; Neutrophils # 8.2 K/mcL (1.6-8.9); Platelet Count 344 K/mcL (140-400); Red Blood Count 3.07 M/mcL (4.19-5.50); Red Cell Distribution Width 14.9 % (11.5-14.5); Segmented Neutrophils % 72.8 %
[2017-11-29 07:38] LABS: BUN/Creatinine Ratio 32 (6-26); Blood Urea Nitrogen 23 mg/dL (8-23); Calcium 8.3 mg/dL (8.6-10.3); Carbon Dioxide 26 mEq/L (23-29); Chloride 106 mEq/L (98-107); Glucose 95 mg/dL (70-105); Osmolality,Calculated 285 (280-300); Potassium 4.2 mEq/L (3.5-5.1); Sodium 136 mEq/L (136-145); eGFR For African Americans > 60 (> 60); eGFR For Non-African Americans > 60 (> 60)
[2017-11-29] MEDS: Cholecalciferol (D-3) 1,000 UNIT TABLET PO SCH (09:03)
[2017-11-29] MEDS: Aspirin Enteric Coated 81 MG Tablet PO SCH (09:03)
--- NOTE | 2017-11-29 14:57 | Discharge Summary ---
- NOTES TO OUTPATIENT PROVIDER Notes to Outpatient Provider: seen by cardiology who recommends per note He is on asa only due to falls. CHADS VASc=3 for HTN and age2. Consider starting coumadin or NOAC once he is more steady on his feet. Also recommends once healed from hip replacement consider outpatient stress if chest pain is recurrent Orders not resulted at time of discharge: Pending orders 11/29/17 13:40 XR hip complete RT [XR] Routine Date of Encounter: 11/29/17 Time of Encounter: 15:30 - Discharge Diagnosis (1) Chest pain Priority: Primary Status: Acute Comments: Cardiology Recommend canceling stress test and continue to monitor. Once he heals from hip replacement consider stress if recurrent pain. I discussed with patient and his brother and they agree with plan. Continue with aspirin beta kostas nitroglycerin as needed for chest pain Qualifiers: Chest pain type: unspecified Qualified Code(s): R07.9 - Chest pain, unspecified (2) Atrial fibrillation Priority: Secondary Status: Chronic Comments: Continue with beta kostas Cardiology recomends -Consider starting coumadin or NOAC once he is more steady on his feet.-He is on asa only due to falls. CHADS VASc=3 for HTN and age2. Qualifiers: Atrial fibrillation type: persistent Qualified Code(s): I48.1 - Persistent atrial fibrillation (3) Osteopenia Priority: Secondary Status: Chronic Comments: 1 Qualifiers: Osteopenia location: unspecified Qualified Code(s): M85.80 - Other specified disorders of bone density and structure, unspecified site (4) Dementia Priority: Secondary Status: Chronic Qualifiers: Dementia type: unspecified type Dementia behavioral disturbance: without behavioral disturbance Qualified Code(s): F03.90 - Unspecified dementia without behavioral disturbance (5) Urinary retention Priority: Secondary Status: Acute (6) HTN (hypertension) Priority: Secondary Status: Acute Qualifiers: Hypertension type: essential hypertension Qualified Code(s): I10 - Essential (primary) hypertension (7) History of repair of right hip joint Priority: Secondary Status: Acute Hospital course: Mr. Graham is a 82 year old male past medical history of chronic atrial fibrillation urinary retention with Aggarwal placement hyperlipidemia dementia recently undergoing right hip repair for right hip fracture. Patient was at a rehabilitation facility undergoing physical therapy after right hip repair. He began to experience chest pain. He was brought to the hospital EKG showed a controlled rate of A. fib with no ST-T wave abnormalities troponins were negative. Patient was unable to complete stress test due to pain and elevated heart rate. TTE 11/20/17 showed preserved EF Cardiology was consulted and recommended canceling stress test and continue to monitor. Advising once he heals from his hip replacement consider stress test if chest pain reoccurs. Patient has been chest pain-free during admission. He will be sent back to rehabilitation for further treatment and therapy. He will follow up with orthopedics, urology and primary care provider. He is hemodynamically stable at this time and he is ready for discharge Discharge discussed with: patient - Time Spent with Patient Total time spent providing and/or coordinating discharge services: - Discharge Medications Home Medications: Aspirin [Lo-Dose Aspirin EC] 81 mg PO DAILY 11/19/17 [History] Donepezil HCl [Aricept] 5 mg PO DAILY 11/19/17 [History] Acetaminophen [Tylenol] 650 mg PO Q6HR PRN tablet 11/23/17 [Rx] Cholecalciferol (D-3) [Vitamin D] 2,000 unit PO DAILY tablet 11/23/17 [Rx] Enoxaparin [Lovenox] 40 mg SQ 0600 syringe 11/23/17 [Rx] Metoprolol [Lopressor] 25 mg PO BID tablet 11/23/17 [Rx] risperiDONE [RisperDAL] 0.25 mg PO HS tablet 11/23/17 [Rx] DiphenhydraMINE [Benadryl] 1 appl TP QID PRN tube 11/29/17 [Rx] DiphenhydraMINE [Benadryl] 25 mg PO Q6HR PRN capsule 11/29/17 [Rx] Nitroglycerin 0.4 mg SL Q5MIN PRN tab.subl 11/29/17 [Rx] Allergies/Adverse Reactions: 3 Allergy/AdvReac Type Severity Reaction Status Date / Time No Known Allergies Allergy Verified 11/19/17 15:12 Date of admission: 11/24/17 16:39 Primary care physician: PCP NONE Consults: 11/27/17 09:51 Consult to Occupational Therapy [CONS] Routine Comment: Evaluate, develop and implement POC Reason for Consult: Hip replacement done 11/20 Does patient have active BEDREST order?: No Is patient medically & hemodynamically stable?: Yes Patient assessed for mobility or mobilized this visit?: No Consult to Physical Therapy [CONS] Routine Comment: Evaluate, develop and implement POC Reason for Consult: Hip replacement on 11/20 Does patient have active BEDREST order?: Yes Is patient medically & hemodynamically stable?: No Patient assessed for mobility or mobilized this visit?: No Consult to Wool Handler [CONS] Routine Reason for SW Consult[facility] 10[facility]32 Consult to Cardiology [CONS] Routine Comment: Consulting Provider: Cardiology Lucy Reason for Consult: CP- afib low BP during stress test Time Notified: 10:32 Call Completed: Yes Discharging clinician: Hanh Melchor Anticipated date of discharge: 11/29/17 - Constitutional Vitals: Temp Pulse Resp BP Pulse Ox 97.5 F L 71 17 103/67 95 11/29/17 11:10 11/29/17 11:10 11/29/17 11:10 11/29/17 11:10 11/29/17 11:10 General appearance: Present: cooperative, A&O X 2, pleasant, no acute distress, answers questions appropriately - Head Head exam: Present: atraumatic, normocephalic - Eye Eye exam: Present: PERRL, conjuntiva pink, sclera anicteric Pupils: Present: PERRL - Neck Neck exam general surgery: Present: supple, trachea midline. Absent: lymphadenopathy - Respiratory Respiratory exam: Present: CTAB. Absent: accessory muscle use, rales, rhonchi, wheezes - Cardiovascular Cardiovascular exam: Present: RRR, +S1, +S2. Absent: diastolic murmur, gallop, rubs, systolic murmur - GI/Abdominal GI/Abdominal exam: Present: normal bowel sounds, soft, no peritoneal signs. Absent: distended, tenderness - Extremities Exam Extremities exam: Present: warm, radial pulses palpable and symmetrical. Absent : calf tenderness, cyanotic, pedal edema - Neurological Exam Neurological exam: Present: CN II-XII intact, oriented X3, no focal deficits. Absent: pronater drift, facial droop, speech deficit - Skin Skin exam: Present: dry, intact, rash, urticaria - Patient Status Disposition: Transfer SNF Condition: Good Functional capacity at discharge: uses cane/walker Overall status at discharge: patient is progressing back to baseline - Discharge Instructions Instructions: Angina (DC), Atrial Fibrillation (DC), Chest Pain (DC), Chronic Hypertension (DC) Follow Up With: Simon Joshi MD [Partnered Physician] - NONE,PCP [Primary Care Provider] - Mahad Trevizo MD [Non-Partnered Physician] - 01/01/18 9:45 am - Diet and Activity Activity: as per physical therapy Diet: advance to your usual diet
--- NOTE | 2017-11-29 15:21 | Physician Discharge Referral ---
ExtendedCare Referral Info Transfer To: [facility] Provider in Charge: Hanh Melchor Provider in Charge after Transfer: PCP Institutional Level of Care: Skilled - Diagnosis (1) Chest pain Priority: Primary Status: Acute (2) Atrial fibrillation Priority: Secondary Status: Chronic (3) Osteopenia Priority: Secondary Status: Chronic (4) Dementia Priority: Secondary Status: Chronic (5) Urinary retention Priority: Secondary Status: Acute (6) HTN (hypertension) Priority: Secondary Status: Acute (7) History of repair of right hip joint Priority: Secondary Status: Acute Prognosis: Good Aware of Diagnosis: Patient - Transfer Medications Home Medications: Aspirin [Lo-Dose Aspirin EC] 81 mg PO DAILY 11/19/17 [History] Donepezil HCl [Aricept] 5 mg PO DAILY 11/19/17 [History] Acetaminophen [Tylenol] 650 mg PO Q6HR PRN tablet 11/23/17 [Rx] Cholecalciferol (D-3) [Vitamin D] 2,000 unit PO DAILY tablet 11/23/17 [Rx] Enoxaparin [Lovenox] 40 mg SQ 0600 syringe 11/23/17 [Rx] Metoprolol [Lopressor] 25 mg PO BID tablet 11/23/17 [Rx] risperiDONE [RisperDAL] 0.25 mg PO HS tablet 11/23/17 [Rx] DiphenhydraMINE [Benadryl] 1 appl TP QID PRN tube 11/29/17 [Rx] DiphenhydraMINE [Benadryl] 25 mg PO Q6HR PRN capsule 11/29/17 [Rx] Nitroglycerin 0.4 mg SL Q5MIN PRN tab.subl 11/29/17 [Rx] Allergies/Adverse Reactions: 3 Allergy/AdvReac Type Severity Reaction Status Date / Time No Known Allergies Allergy Verified 11/19/17 15:12 - Respiratory Orders Smoking Cessation: Smoking cessation has been advised. For more information, call the [place] Tobacco Quit Line at 1-605-HLFM-NOW. - Ancillary Orders May use pressure relief devices daily prn - Advance Directives Code Status: Full Code - Rehabiliation Orders Rehab Potential: Good Rehab Orders: Evaluation for Physical Therapy, Evaluation for Occupational Therapy - Treatments Skin tear care topically daily PRN per policy - Diet Orders Cardiac CERTIFICATION: I certify that the transfer of the above named patient to an Extended Care Facility is necessary for the continuing treatment of the diagnosis listed. The above information is true and accurate reflection of patient's current condition. Confidential - Redisclosure prohibited without a patient's written consent.
[2017-11-29 16:22] VITALS: BP 97/62
--- NOTE | 2017-11-29 16:55 | Electrocardiograph Report ---
[address] [address] Test Date: 2017-11-27 Pat Name: Partha Graham Department: 113 Room: 3B44 Gender: M Salvage Engineer: LEXA : 1935 Requested By: Hanh Melchor Order Number: [id number] Reading MD: Sp Torres Measurements Intervals [place] Rate: 83 P: MD: 0 QRS: 5 QRSD: 89 T: 15 QT: 381 QTc: 421 Interpretive Statements ATRIAL FIBRILLATION ABNORMAL RHYTHM ECG Electronically Signed On 11-29-2017 16:53:23 EDT by Sp Torres
--- NOTE | 2017-11-29 18:02 | Orthopedics Progress Note ---
Date of Encounter: 11/29/17 Time of Encounter: 17:59 Subjective Interval history: S: 82 yo M s/p R hip cephalomedullary IMN 10 days ago. Patient was discharged to [place] rehab, then readmitted several days ago with chest pain and ST depression on EKG. Thus far patient has had LATONYA which showed preserved EF, no increase in troponins and denies chest pain currently. Patient has been unable to undergo stress test due to Atrial fibrillation and recent hip surgery. Patient to be discharged back to SNF today. Denies CP or SOB currently. Hip pain tolerable. Has been up with assistance. No fevers or chills. O: Vitals reviewed XR R hip shows well aligned intertrochanteric fracture with HW in place with no HW complications GEN: No acute distress, underlying dementia Chest: No resp distress, No SOB RLE: Incisions c/d/i No erythema No drainage Able to gently range hip with no pain DNVI with SILT and motor intact 2+ DP/PT pulses A/P: 82 yo M s/p R hip cephalomedullary IMN -Dressing changed -May remove zipline in 1 week -WBAT right hip -F/u in 1 month in office, appointment made -DVT prophylaxis, medical management per cardiology and hospitalist Objective Vital signs: Vital Signs Temp Pulse Resp BP Pulse Ox 11/29/17 16:21 97.3 F L 95 17 97/62 95 11/29/17 11:10 97.5 F L 71 17 103/67 95 11/29/17 07:30 97.9 F 82 17 100/62 93 11/29/17 04:08 97.5 F L 83 16 111/69 99 11/28/17 22:51 98.2 F 81 16 103/63 97 11/28/17 18:30 98.4 F 93 16 101/66 94 Intake and Output 11/29/17 11/29/17 11/29/17 07:59 15:59 23:59 Intake Total 240 / 240 Output Total 450 / 450 500 / 500 Balance -450 / -450 -260 / -260 Intake: Oral 240 / 240 Output: Urine 500 / 500 Catheter 450 / 450 Other: Meal Breakfast Percent of Meal Consumed 50% Weight 62 kg Patient Weight 11/29/17 23:59 Weight 62 kg - Labs CBC & BMP: 11/29/17 06:32 11/29/17 06:32 Labs: Abnormal lab results WBC 11.2 K/mcL (4.3-11.1) H 11/29/17 06:32 RBC 3.07 M/mcL (4.19-5.50) L 11/29/17 06:32 Hgb 9.6 g/dL (12.9-16.9) L 11/29/17 06:32 Hct 28.9 % (37.5-50.1) L 11/29/17 06:32 RDW 14.9 % (11.5-14.5) H 11/29/17 06:32 BUN/Creatinine Ratio 32 (6-26) H 11/29/17 06:32 Calcium 8.3 mg/dL (8.6-10.3) L 11/29/17 06:32 HDL Cholesterol 22 mg/dL (40-59) L 11/25/17 00:16 Cholesterol/HDL Ratio 5.2 (0-4.9) H 11/25/17 00:16 Consult Discharge Plan - Plan Instructions: Angina (DC), Atrial Fibrillation (DC), Chest Pain (DC), Chronic Hypertension (DC) Referrals: Simon Joshi MD [Partnered Physician] - NONE,PCP [Primary Care Provider] - Mahad Trevizo MD [Non-Partnered Physician] - 01/01/18 9:45 am
== END 2017-11-29 19:02 ==
LOC: 3BNU
PROVIDERS: ADMIT Family Medicine; ATTEND Registered Nurse